=== PATIENT | female | born 2000 | race Two or more races ===

== ENCOUNTER 2023-12-08 01:43 | Emergency (ER) | payer SELFPAY ==
[~2023-12-08] VITALS: Ht 157.5 cm; Wt 63.6 kg
[2023-12-08 01:51] VITALS: TEMP 97.4
[2023-12-08 02:24] VITALS: BP 95/57; PULSE 77; RESP 16; O2SAT 98
[2023-12-08] MEDS ORDERED: IPRATROPIUM BROMIDE 0.5 MG/2.5 ML NEB SOLUTION NEB ONE (02:30)
[2023-12-08] MEDS ORDERED: ALBUTEROL SULFATE 2.5 MG/0.5 ML NEB SOLUTION NEB ONE (02:30)
== END 2023-12-08 02:40 | disposition left against medical advice (07) ==
LOC: EMS 01:44
DX: J45.909 Unspecified asthma, uncomplicated (principal); Z53.21 Procedure and treatment not carried out due to patient leaving prior to being seen by health care provider